=== PATIENT | male | born 2005 | race Caucasian/White ===

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

== ENCOUNTER 2023-02-02 08:33 | Emergency (ER) | payer SELFPAY ==
[~2023-02-02] VITALS: Ht 170 cm; Wt 74.8 kg
[~2023-02-02 08:33] MED LIST changes: +BENZ100C18 PO; +IBUP-1773 PO
[2023-02-02] MEDS ORDERED: fentaNYL INJECTION 100 MCG/2 ML VIAL IM ONE (09:45)
[2023-02-02] MEDS ORDERED: fentaNYL INJECTION 100 MCG/2 ML VIAL IVP ONE (09:45)
--- NOTE | 2023-02-02 10:08 | ED Upper Extremity ---
General Chief Complaint: Upper Extremity Stated Complaint: RT ARM INJ | POST OP PAIN Nursing Triage Note: pt presents to ed with complaints of r arm pain after having sx for a fx repair yesterday at [facility] in [place]. pt reports he has been taking oxycodone but has had no relief. Source: patient Exam Limitations: no limitations History of Present Illness Date Seen by Provider: Feb 02, 2023 Allergies and Home Medications Allergies Coded Allergies: No Known Drug Allergies (Unverified , 09/01/11) Patient Home Medication List Benzonatate (Tessalon Perles) 100 Mg Capsule, 100 MG PO Q8H PRN for COUGH Prescribed by: Irving Mercedes on 01/19/22 1737 Cephalexin (Cephalexin) 500 Mg Tablet, 500 MG PO TID Prescribed by: JOSELINE SAMUELS on 06/07/202040 Guanfacine HCl (Intuniv) 2 Mg Tab.er.24h, 2 MG PO DAILY, (Reported) Entered as Reported by: JENNIFER ESCOBAR on 02/03/15 1609 Hydrocodone Bit/Acetaminophen (Lortab 5 Mg Tablet) 1 Each Tablet, 1 EACH PO Q4H PRN for PAIN Prescribed by: PRIYANK NORMAN on 11/24/16 1141 Ibuprofen (Ibuprofen) 600 Mg Tablet, 600 MG PO Q6H PRN for PAIN-MILD Prescribed by: Irving Mercedes on 01/19/22 1737 Lisdexamfetamine Dimesylate (Vyvanse) 40 Mg Capsule, 40 MG PO DAILY, (Reported) Entered as Reported by: JENNIFER ESCOBAR on 02/03/15 1609 Mupirocin Calcium (Mupirocin) 15 Gm Cream..g., 15 GM TP BID Prescribed by: JOSELINE SAMUELS on 06/07/202040 Sulfamethoxazole/Trimethoprim (Bactrim 400-80 mg Tablet) 1 Each Tablet, 1 EACH PO BID Prescribed by: KAEL MAE on 07/13/16 1343 Triamcinolone Acet (Triamcinolone Acetonide 0.1% Cream) 15 Gm Cr, 15 GM TP BID Prescribed by: JOSELINE SAMUELS on 06/07/202040 Past Rxiseqg-Pczoaq-Ykpnym Hx Patient Social History Tobacco Use?: No Substance use?: Yes Substance type: Marijuana Additional substance use comme: [id number] Alcohol Use?: Yes Alcohol Frequency: Once in a while Pt feels they are or have been: No Immunizations Up To Date Tetanus Booster (TDap): Less than 5yrs PED Vaccines UTD: Yes Seasonal Allergies Seasonal Allergies: No Past Medical History Surgery/Hospitalization HX: r arm sx for fx Surgeries: No Respiratory: No Cardiac: No Neurological: No Reproductive Disorders: No Genitourinary: No Gastrointestinal: No Musculoskeletal: No Endocrine: No HEENT: No Cancer: No Psychosocial: Yes ADD/ADHD Integumentary: Yes Eczema Blood Disorders: No Adverse Reaction/Blood Tranf: No Family Medical History No Pertinent Family Hx Physical Exam Vital Signs Vital Signs - First Documented 02/02/23 09:04 Temp 37.5 Pulse 89 Resp 16 B/P (MAP) 142/81 (101) Pulse Ox 98 Capillary Refill : Less Than 3 Seconds Height, Weight, BMI Height: 5'0" Weight: 80lbs. oz. [id number]; 25.00 BMI Method:Stated Progress/Results/Core Measures Results/Orders Lab Results Laboratory Tests Test 02/02/23 11:54 Range/Units White Blood Count 10.7 4.3-11.0 10^3/uL Red Blood Count 3.82 L 4.30-5.52 10^6/uL Hemoglobin 11.8 L 13.3-17.7 g/dL Hematocrit 37 L 40-54 % Mean Corpuscular Volume 96 80-99 fL Mean Corpuscular Hemoglobin 31 25-34 pg Mean Corpuscular Hemoglobin Concent 32 32-36 g/dL Red Cell Distribution Width 12.9 10.0-14.5 % Platelet Count 340 130-400 10^3/uL Mean Platelet Volume 8.5 L 9.0-12.2 fL Sodium Level 136 135-145 MMOL/L Potassium Level 4.2 3.6-5.0 MMOL/L Chloride Level 103 98-107 MMOL/L Carbon Dioxide Level 25 21-32 MMOL/L Anion Gap 8 5-14 MMOL/L Blood Urea Nitrogen 9 7-18 MG/DL Creatinine 0.89 0.60-1.30 MG/DL Estimat Glomerular Filtration Rate 127 BUN/Creatinine Ratio 10 Glucose Level 100 70-105 MG/DL Calcium Level 9.1 8.5-10.1 MG/DL C-Reactive Protein High Sensitivity 6.85 H 0.00-0.50 MG/DL My Orders Orders - CINDY MOLINA MD Fentanyl Injection (Fentanyl Injection (02/02/23 09:45) Basic Metabolic Panel (02/02/23 11:31) Cbc No Diff (02/02/23 11:31) Hs C Reactive Protein (02/02/23 11:31) Ed Iv/Invasive Line Start (02/02/23 11:31) Morphine Injection (Morphine Injection (02/02/23 11:34) Forearm, Right, 2 Views (02/02/23 11:38) Morphine Injection (Morphine Injection (02/02/23 12:30) Medications Given in ED Current Medications Medications Dose Ordered Sig/Gena Route Start Time Stop Time Status Last Admin Dose Admin Fentanyl Citrate 75 mcg ONCE ONCE IM 02/02/23 09:45 02/02/23 09:46 DC 02/02/23 09:47 75 MCG Vital Signs/I&O 02/02/23 09:04 Temp 37.5 Pulse 89 Resp 16 B/P (MAP) 142/81 (101) Pulse Ox 98 Blood Pressure Mean: 101 Progress Progress Note : Time: 11:39 Progress Note The [place] bandage and cotton roll was removed and patient was allowed to rest. He was reexamined and found to have no significant improvement in pain. The right upper extremity was significantly edematous. Radial pulse was plainly palpable, even through the edema. Capillary refill was brisk in all fingers. Passive extension of the fingers was painful in the ventral forearm. I briefly discussed the case with Dr. Pozo, orthopedic surgeon on-call. He advises no emergent intervention is necessary at this moment given the adequate blood flow on exam. He advised contacting the patient's primary orthopedic surgeon for further instruction. In the meantime, patient is being treated with morphine 5 mg IV. Basic labs are being obtained. Departure Impression Primary Impression: Postoperative pain Additional Impression: Postoperative edema Disposition: 02 XFER SHT-TRM HOSP Condition: Stable Transfer Transfer Reason: Exceeds level of care (Needs continuity with surgeon) Time Spoke to Accepting Phy: 12:36 Transfer Facility: [facility] Method of Transfer: Private Vehicle Departure-Patient Inst. Decision time for Depature: 12:40 Referrals: ALONDRA GONZALEZ MD (PCP/Family) Primary Care Physician Add. Discharge Instructions: Go directly to the emergency room at [facility]. They are expecting your arrival. Bring your transfer form with you. Do not eat or drink until otherwise instructed by a physician. Keep your arm elevated is much as possible and ice as much as possible and route. Call with questions or concerns. All discharge instructions reviewed with patient and/or family. Voiced understanding. CINDY MOLINA MD Feb 02, 2023 10:08
[2023-02-02] MEDS ORDERED: morphine INJ 10 MG/ML 1ML (SYR OR VIAL) IVP STA (11:34)
[2023-02-02 11:58] LABS: HEMATOCRIT 37 % (40-54); HEMOGLOBIN 11.8 g/dL (13.3-17.7); MEAN CORPUSCULAR HEMOGLOBIN 31 pg (25-34); MEAN CORPUSCULAR HGB CONC 32 g/dL (32-36); MEAN CORPUSCULAR VOLUME 96 fL (80-99); MEAN PLATELET VOLUME 8.5 fL (9.0-12.2); PLATELET COUNT 340 10^3/uL (130-400); WHITE BLOOD COUNT 10.7 10^3/uL (4.3-11.0)
--- NOTE | 2023-02-02 12:06 | Diagnostic Imaging Report ---
INDICATION: Right arm pain. AP and lateral views of the right forearm are obtained. There are well-aligned radial and ulnar diaphyseal fractures with internal fixation devices. There is minimal avulsion fracture at the ulnar styloid process. The elbow appears intact. IMPRESSION: Good alignment of the internally fixed radial and ulnar shaft fractures with nondisplaced minimal ulnar styloid process avulsion. Dictated by: Dictated on workstation # [id number]
[2023-02-02 12:07] LABS: POTASSIUM 4.2 MMOL/L (3.6-5.0)
[2023-02-02 12:08] LABS: CALCIUM 9.1 MG/DL (8.5-10.1)
[2023-02-02 12:12] LABS: CREATININE SERUM 0.89 MG/DL (0.60-1.30)
[2023-02-02] MEDS ORDERED: morphine INJ 4 MG/ML 1 ML (VIAL/SYRINGE) IVP ONE (12:30)
[2023-02-02 13:30] VITALS: BP 135/79
== END 2023-02-02 13:30 | disposition short-term general hospital (02) ==
LOC: EDUNIT# 08:33 → ER 08:35
DX: G89.18 Other acute postprocedural pain (principal); L76.82 Other postprocedural complications of skin and subcutaneous tissue; R60.0 Localized edema
CPT/HCPCS: 36415; 73090; 80048; 85027; 86141